=== PATIENT | female | born 1965 ===

== ENCOUNTER 2017-01-29 11:27 | Observation (INO) | payer OTHER ==
[2017-01-29 12:29] LABS: BASO # 0.1 K/uL (0.0-0.2); BASO % 1.1 % (0.0-2.0); EOS # 0.2 K/uL (0.0-0.7); EOS % 2.9 % (0.0-4.0); HEMATOCRIT 40.2 % (34.0-47.0); LYMPH # 2.2 K/uL (1.0-4.3); LYMPH % 32.2 % (20.0-40.0); MEAN CELL VOLUME 91.2 fl (81.0-99.0); MEAN CORPUSCULAR HEMOGLOBIN 30.8 pg (27.0-31.0); MEAN CORPUSCULAR HGB CONC 33.8 g/dL (33.0-37.0); MEAN PLATELET VOLUME 7.8 fl (7.2-11.7); MONO # 0.6 K/uL (0.0-0.8); MONO % 8.4 % (0.0-10.0); NEUT # 3.8 K/uL (1.8-7.0); NEUT % 55.4 % (50.0-75.0); NRBC % 0.1 % (0.0-0.0); RED CELL DISTRIBUTION WIDTH 13.5 % (11.5-14.5); WHITE BLOOD COUNT 6.8 K/uL (4.8-10.8)
--- NOTE | 2017-01-29 12:30 | ED PDOC ---
HPI: Chest Pain Time Seen by Provider: 01/29/17 11:40 Chief Complaint (Nursing): Chest Pain Chief Complaint (Provider): Chest Pain History Per: Patient History/Exam Limitations: no limitations Onset/Duration Of Symptoms: Days (x3) Current Symptoms Are (Timing): Still Present Additional Complaint(s): Savannah Jaquez is a 51 year old female that presents to the ED with a chief complaint of left-sided chest pain that radiates to her left scapula and worsens with deep breathing that she has been experiencing for the past three days. Patient reports that her chest pain has been constant since she woke up this morning, which prompted her ED visit. She reports that she took Tylenol and Aspirin in an attempt to relieve her pain with no success. She denies any difficulty breathing, leg swelling, dizziness, or syncope. Past Medical History Reviewed: Historical Data, Nursing Documentation, Vital Signs Vital Signs: Last Vital Signs Temp 98 F 01/29/17 12:00 Pulse 70 01/29/17 11:37 Resp 16 01/29/17 11:37 BP 141/79 01/29/17 11:37 Pulse Ox 97 01/29/17 12:33 - Medical History PMH: Anxiety, Kidney Stones Denies: HIV, Chronic Kidney Disease - Surgical History Surgical History: Cholecystectomy - Family History Family History: States: Unknown Family Hx - Allergies Allergies/Adverse Reactions: Allergies Allergy/AdvReac Type Severity Reaction Status Date / Time No Known Allergies Allergy Verified 01/29/17 11:36 Review of Systems Cardiovascular: Positive for: Chest Pain (left-sided, radiates to left scapula) . Negative for: Edema (denies pedal edema) Respiratory: Negative for: Shortness of Breath, Other (no difficulty breathing) Neurological: Negative for: Dizziness, Other (denies syncope) Physical Exam - Reviewed Nursing Documentation Reviewed: Yes Vital Signs Reviewed: Yes - Physical Exam Appears: Positive for: Non-toxic, No Acute Distress Head Exam: Positive for: ATRAUMATIC, NORMOCEPHALIC Skin: Positive for: Normal Color, Warm Cardiovascular/Chest: Positive for: Regular Rate, Rhythm. Negative for: Murmur Respiratory: Positive for: Normal Breath Sounds. Negative for: Wheezing Gastrointestinal/Abdominal: Positive for: Normal Exam, Soft. Negative for: Tenderness Extremity: Positive for: Normal ROM. Negative for: Pedal Edema Neurologic/Psych: Positive for: Alert, Oriented. Negative for: Motor/Sensory Deficits - Laboratory Results Result Diagrams: 01/29/17 12:22 01/29/17 12:22 - ECG O2 Sat by Pulse Oximetry: 97 (RA) Pulse Ox Interpretation: Normal Medical Decision Making Medical Decision Making: Impression: Chest Pain, ddx include ACS vs. PE vs. Musculoskeletal Pain vs. Cervical Radiculopathy Plan: * EKG * BMP * CBC * D-Dimer * Troponin I * Chest X-Ray One View * Reevaluation Scribe Attestation: Documented by Susie Howard, acting as a scribe for Yadi Connors MD. Provider Scribe Attestation: All medical record entries made by the Scribe were at my direction and personally dictated by me. I have reviewed the chart and agree that the record accurately reflects my personal performance of the history, physical exam, medical decision making, and the department course for this patient. I have also personally directed, reviewed, and agree with the discharge instructions and disposition.
[2017-01-29 12:42] LABS: BLOOD UREA NITROGEN 13 mg/dl (7-17); CARBON DIOXIDE 26 mmol/L (22-30); CHLORIDE 107 mmol/L (98-107); GFR AFRICAN-AMERICAN > 60; GLUCOSE,RANDOM 111 mg/dL (65-105); SODIUM 143 mmol/l (132-148)
--- NOTE | 2017-01-29 13:42 | RAD ---
HISTORY: chest pain COMPARISON: Chest x-ray performed 03/06/15 TECHNIQUE: Chest, one view. FINDINGS: Examination limited by habitus. LUNGS: No focal consolidation. Please note that chest x-ray has limited sensitivity for the detection of pulmonary masses. PLEURA: No significant pleural effusion identified. No definite pneumothorax . CARDIOVASCULAR: Heart size appears within normal limits. OSSEOUS STRUCTURES: Degenerative changes of the spine. VISUALIZED UPPER ABDOMEN: Unremarkable. OTHER FINDINGS: None. IMPRESSION: No focal consolidation, significant pleural effusion, or definite pneumothorax identified.
--- NOTE | 2017-01-29 16:11 | CP.PCM.HP ---
History of Present Illness - History of Present Illness History of Present Illness: 51 yr old F presented to ER with complaint of left sided chest pain radiating to the upper back which began 3 days ago. Patient took ASA but this did not alleviate her chest or back pain. She denies syncope, nausea, vomiting, sweating , weakness, dizziness, visual changes, fever, chills or weight loss. The chest and back pain are worsened by movement and deep breaths. 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 She has PMHx of intermittent chronic headaches and IBS controlled via diet, unspecified psych diagnosis (per patients explanation: psychogenic polydipsia?). Patient reports she had similar chest/back pain with left facial numbess 1 yr ago and her hospital workup was wnl. 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 SurgHx: x 2, Cholecystectomy 2013 FMHx: mother at 68 from lung cancer, father alive with HTN, siblings and children are healthy, retired 4 months ago from [employer] job of 12yrs with the same children SocialHx: denies smoking, Etoh/drugs; lives with and 2 adult children, reports all is well at home Meds: stopped taking her Sertraline 50mg PO QD 2 weeks ago, ASA PRN pain Allergies: NKDA ED Course: vital signs wnl -EKG: NSR -CXR: no focal consolidation, no significant pleural effusion or definite pneumothorax -CT scan dissection protocol: within normal limits without evidence of anuerysm or dissection -Labs: CBC wnl, BMP wnl, Troponin negative x 1, D-dimer wnl Present on Admission - Present on Admission Any Indicators Present on Admission: No History of DVT/PE: No History of Uncontrolled Diabetes: No Urinary Catheter: No Decubitus Ulcer Present: No Review of Systems - Review of Systems All systems: reviewed and no additional remarkable complaints except (for what is mentioned in the HPI) Past Patient History - Past Medical History & Family History Past Medical History?: No - Past Social History Smoking Status: Never Smoked - CARDIAC Hx Cardiac Disorders: No - PULMONARY Hx Respiratory Disorders: No - NEUROLOGICAL Hx Neurological Disorder: No - HEENT Hx HEENT Problems: No - RENAL Hx Chronic Kidney Disease: No Hx Kidney Stones: Yes - ENDOCRINE/METABOLIC Hx Endocrine Disorders: No - HEMATOLOGICAL/ONCOLOGICAL Hx Human Immunodeficiency Virus (HIV): No - INTEGUMENTARY Hx Dermatological Problems: No - MUSCULOSKELETAL/RHEUMATOLOGICAL Hx Musculoskeletal Disorders: No - GASTROINTESTINAL Hx Gastrointestinal Disorders: No - GENITOURINARY/GYNECOLOGICAL Hx Genitourinary Disorders: No - PSYCHIATRIC Hx Anxiety: Yes - SURGICAL HISTORY Hx Cholecystectomy: Yes - ANESTHESIA Hx Anesthesia: Yes Hx Anesthesia Reactions: No Hx Malignant Hyperthermia: No Meds Allergies/Adverse Reactions: Allergies Allergy/AdvReac Type Severity Reaction Status Date / Time No Known Allergies Allergy Verified 01/29/17 11:36 Physical Exam - Constitutional Appears: Well, No Acute Distress - Head Exam Head Exam: ATRAUMATIC, NORMOCEPHALIC - Eye Exam Eye Exam: EOMI, PERRL - ENT Exam ENT Exam: Mucous Membranes Moist - Neck Exam Neck exam: Positive for: Full Rom. Negative for: Lymphadenopathy - Respiratory Exam Respiratory Exam: Clear to Auscultation Bilateral, NORMAL BREATHING PATTERN - Cardiovascular Exam Cardiovascular Exam: REGULAR RHYTHM, +S1, +S2 - GI/Abdominal Exam GI & Abdominal Exam: Normal Bowel Sounds, Soft (obese). absent: Distended, Tenderness - Extremities Exam Extremities exam: Positive for: full ROM. Negative for: calf tenderness ( strength 5/5 in all muscle groups, sensation equal b/l), pedal edema - Back Exam Back exam: FULL ROM (minimal kyphosis), tenderness (over left upper back on light palpation). absent: CVA tenderness (L), CVA tenderness (R) - Neurological Exam Neurological exam: Alert, CN II-XII Intact, Oriented x3 - Psychiatric Exam Psychiatric exam: Normal Affect, Normal Mood - Skin Skin Exam: Dry, Intact, Normal Color, Warm Results - Vital Signs Recent Vital Signs: Last Vital Signs Temp 98 F 01/29/17 12:00 Pulse 70 01/29/17 11:37 Resp 16 01/29/17 11:37 BP 141/79 01/29/17 11:37 Pulse Ox 97 06/20/17 14:22 - Labs Result Diagrams: 01/29/17 12:22 01/29/17 12:22 Assessment & Plan - Assessment and Plan (Free Text) Assessment: 51 yr old F admitted for left sided chest pain radiating to the left upper back x 3 days worsened by movement and inspiration, with PMHx of intermittent chronic headaches and IBS controlled via diet, psychogenic polydipsia?. 1. Chest pain -likely secondary to ACS vs PE vs Cervical Radiculopathy -EKG: NSR, no ST-T changes, vital signs stable, Troponin negative x 1, no need for Echo or cardiology consult at this time -CXR: no focal consolidation, no significant pleural effusion or definite pneumothorax -CT scan dissection protocol: within normal limits without evidence of anuerysm or dissection -Labs: CBC wnl, BMP wnl, Troponin negative x 1, D-dimer wnl -f/u serial troponin x 2, lipid panel, TSH, microalbumin, HbA1c 2. Diet -regular 3. DVT prophylaxis -Lovenox 40mg SC QD - Date & Time Date: 01/29/17 Time: 16:00
--- NOTE | 2017-01-29 16:11 | CT ---
Dissection CT Indication: Chest pain, back pain Technique: Contiguous axial images of the chest, abdomen, and pelvis utilizing dissection protocol. Coronal and Sagittal reformats generated and reviewed. This CT exam was performed using 1 or more of the following dose reduction techniques: Automated exposure control, adjustment of the MAA and/or kV according to patient size, and/or use of iterative reconstruction technique. Oral contrast was not administered. 100 cc Visipaque 320 injected. Radiation dose: Total exam DLP = 1701.59 MGy-cm. Comparison: Chest x-ray performed 01/29/17, CT abdomen and pelvis without IV contrast performed 11/16/14 Findings: Visualized portions of the inferior thyroid gland appear unremarkable. The mediastinal and hilar vascular structures appear within normal limits. The heart appears within normal limits of size. Sub cm prevascular/mediastinal lymph nodes, nonspecific. No large central pulmonary embolus identified. Minimal basilar atelectasis. No focal consolidation. No pleural effusion. No pneumothorax. No suspicious pulmonary nodules measuring greater than 5 mm. Hypoattenuation of the liver compatible with hepatic steatosis. Cholecystectomy. The spleen, kidneys, pancreas, and adrenal glands appear unremarkable. The stomach is nondistended. The bowel loops appear within normal limits of caliber without evidence of intestinal obstruction. Aiyg-rd-vddawihj constipation. There is no definite free air. The appendix appears within normal limits of caliber. No secondary signs of acute appendicitis. Uterus is present. 2.1 cm probable left ovarian cyst. The urinary bladder appears unremarkable. Mild degenerative changes of the spine. Impression: The aorta appears within normal limits of caliber without evidence of aneurysm or dissection. Hepatic steatosis. Cholecystectomy. 2.1 cm probable left ovarian cyst. Suggest further evaluation with pelvic ultrasound if indicated. Mild to moderate constipation.
[2017-01-29] MEDS ORDERED: POLYETHYLENE GLYCOL 3350 17 GM/Dose PACKET PO ONE (16:45)
[2017-01-29 19:39] LABS: THYROID STIMULATING HORMONE 1.04 mIU/ML (0.46-4.68)
[2017-01-29] MEDS: Enoxaparin 40 mg Syringe SC SCH (20:09)
[2017-01-30 08:03] VITALS: BP 120/71; PULSE 62; RESP 20; TEMP 97.8; O2SAT 99
[2017-01-30] MEDS ORDERED: Lidocaine 5% Patch TD SCH (09:00)
--- NOTE | 2017-01-30 11:16 | CP.PCM.DIS ---
Provider - Provider Date of Admission: 01/29/17 14:22 Attending physician: Myrna Joiner MD Time Spent in preparation of Discharge (in minutes): 30 Diagnosis - Discharge Diagnosis (1) Chest pain Status: Acute (2) Muscle spasm Status: Acute Hospital Course - Lab Results Lab Results: Most Recent Lab Values WBC 6.8 K/uL (4.8-10.8) 01/29/17 12:22 RBC 4.41 Mil/uL (3.80-5.20) 01/29/17 12:22 Hgb 13.6 g/dL (12.0-16.0) 01/29/17 12:22 Hct 40.2 % (34.0-47.0) 01/29/17 12:22 MCV 91.2 fl (81.0-99.0) 01/29/17 12:22 MCH 30.8 pg (27.0-31.0) 01/29/17 12:22 MCHC 33.8 g/dL (33.0-37.0) 01/29/17 12:22 RDW 13.5 % (11.5-14.5) 01/29/17 12:22 Plt Count 270 K/uL (130-400) 01/29/17 12:22 MPV 7.8 fl (7.2-11.7) 01/29/17 12:22 Neut % (Auto) 55.4 % (50.0-75.0) 01/29/17 12:22 Lymph % (Auto) 32.2 % (20.0-40.0) 01/29/17 12:22 Walker % (Auto) 8.4 % (0.0-10.0) 01/29/17 12:22 Eos % (Auto) 2.9 % (0.0-4.0) 01/29/17 12:22 Baso % (Auto) 1.1 % (0.0-2.0) 01/29/17 12:22 Neut # 3.8 K/uL (1.8-7.0) 01/29/17 12:22 Lymph # 2.2 K/uL (1.0-4.3) 01/29/17 12:22 Walker # 0.6 K/uL (0.0-0.8) 01/29/17 12:22 Eos # 0.2 K/uL (0.0-0.7) 01/29/17 12:22 Baso # 0.1 K/uL (0.0-0.2) 01/29/17 12:22 D-Dimer, Quantitative 98 ng/mlDDU (0-230) 01/29/17 12:22 Sodium 143 mmol/l (132-148) 01/29/17 12:22 Potassium 5.0 MMOL/L (3.6-5.0) 01/29/17 12:22 Chloride 107 mmol/L (98-107) 01/29/17 12:22 Carbon Dioxide 26 mmol/L (22-30) 01/29/17 12:22 Anion Gap 15 (10-20) 01/29/17 12:22 BUN 13 mg/dl (7-17) 01/29/17 12:22 Creatinine 0.6 mg/dL (0.7-1.2) L 01/29/17 12:22 Est GFR ( Amer) > 60 01/29/17 12:22 Est GFR (Non-Af Amer) > 60 01/29/17 12:22 Random Glucose 111 mg/dL (65-105) H 01/29/17 12:22 Hemoglobin A1c 6.0 % (4.2-6.5) 01/29/17 18:41 Calcium 9.0 mg/dL (8.4-10.2) 01/29/17 12:22 Troponin I < 0.0120 ng/mL (0.00-0.120) 01/30/17 06:15 Triglycerides 139 mg/DL (0-149) 01/29/17 18:56 Cholesterol 191 mg/dL (0-199) 01/29/17 18:56 LDL Cholesterol Direct 147 mg/dL (0-129) H 01/29/17 18:56 HDL Cholesterol 30 MG/DL (30-70) 01/29/17 18:56 TSH 3rd Generation 1.04 mIU/ML (0.46-4.68) 01/29/17 18:56 - Hospital Course Hospital Course: 51 year old female admitted with complaint of chest and back pain for past 3 days, admitted to rule out acs, rule out aortic dissection. Patient had EKG, CXR , and CT chest/abd, all of which were negative. All labs were within normal limits, including serial troponins, d-dimer, TSH. Mildly elevated LDL. Pain is likely secondary to muscle spasm. Today, patient continues to complain of neck/back pain. She has ttp. Given that cardiac etiology was ruled out the patient was discharged with flexeril, ultram and lidoderm patches. Discharge Exam - Head Exam Head Exam: ATRAUMATIC, NORMOCEPHALIC - Eye Exam Eye Exam: EOMI, Normal appearance - ENT Exam ENT Exam: Normal Exam - Respiratory Exam Respiratory Exam: Chest Wall Tenderness (anteriorly ), NORMAL BREATHING PATTERN , UNREMARKABLE - Cardiovascular Exam Cardiovascular Exam: REGULAR RHYTHM, +S1, +S2 - GI/Abdominal Exam GI & Abdominal Exam: Unremarkable - Rectal Exam Rectal Exam: Deferred - Back Exam Back exam: muscle spasm (upper back left more than right sided tenderness.). absent: CVA tenderness (L), CVA tenderness (R) - Neurological Exam Neurological exam: Alert, Motor Sensory Deficit, Oriented x3 - Psychiatric Exam Psychiatric exam: Normal Affect, Normal Mood - Skin Skin Exam: Dry, Intact, Normal Color - Additional Findings Additional findings: Patient appears uncomfortable, secondary to pain Discharge Plan - Discharge Medications Prescriptions: Cyclobenzaprine [Flexeril] 5 mg PO HS PRN #5 tab PRN Reason: Muscle Spasm Lidocaine 5% [Lidoderm] 1 ea TD DAILY PRN #1 patch PRN Reason: Pain, Moderate (4-7) traMADol [Ultram] 50 mg PO Q6 PRN #10 tab PRN Reason: Pain, Mild (1-3) - Follow Up Plan Condition: GUARDED Disposition: HOME/ ROUTINE Instructions: Noncardiac Chest Pain (DC)
[2017-01-30] MEDS: Enoxaparin 40 mg Syringe SC SCH (12:01)
--- NOTE | 2017-01-30 15:41 | CARD ---
APPROVED REPORT EKG Measurement Heart [id number] <Conclusion> Normal sinus rhythm Possible Inferior infarct, age undetermined Abnormal ECG
== END 2017-01-30 13:47 | disposition home or self-care (01) ==
LOC: H.ER 11:27 → H.ERHOLD 14:22 → H.TEL 18:14
PROVIDERS: ADMIT Family Medicine Geriatric Medicine; ATTEND Family Medicine Geriatric Medicine
DX: R07.89 Other chest pain (principal); M62.830 Muscle spasm of back; K58.9 Irritable bowel syndrome, unspecified; Z87.442 Personal history of urinary calculi